=== PATIENT | male | born 2000 | race Two or more races ===

== ENCOUNTER 2025-03-25 22:55 | Emergency (ER) | payer OTHER ==
[2025-03-25 23:00] VITALS: TEMP 98.4; BMI 32.1
[2025-03-25] MEDS ORDERED: ONDANSETRON 4 MG/2 ML VIAL ONE (23:30)
[2025-03-25] MEDS ORDERED: ACETAMINOPHEN INJECTION 100 ML ONE (23:30)
[2025-03-25] MEDS ORDERED: MAG HYDROX/AL HYDROX/SIMETH 30 ML UNIT-DOSE CUP ONE (23:30)
[2025-03-25] MEDS ORDERED: FAMOTIDINE 10 MG/ML VIAL IVPB ONE (23:31)
[2025-03-25] MEDS: ACETAMINOPHEN 1000 MG/100 ML BAG IVPB ONE (23:51)
[2025-03-25] MEDS: ONDANSETRON 4 MG/2 ML VIAL IVPUSH ONE (23:51)
[2025-03-25] MEDS: FAMOTIDINE 20 MG/50 ML IVPB 20 MG/50 ML MG IVPB ONE (23:51)
[2025-03-25] MEDS: SODIUM CHLORIDE 1,000 ML IV STA (23:51)
[2025-03-25] MEDS: MAG HYDROX/AL HYDROX/SIMETH 30 ML UNIT-DOSE CUP PO ONE (23:51)
[2025-03-25 23:55] LABS: ABSOLUTE IMMATURE GRANULOCYTES 0.02 x10^3/uL (0.0-0.031); BASOPHILS # 0.05 x10^3/uL (0.01-0.08); EOSINOPHIL % 2.7 % (0.8-7.0); EOSINOPHILS # 0.21 x10^3/uL (0.04-0.54); HEMATOCRIT 43.5 % (40.1-51.0); HEMOGLOBIN 14.3 g/dL (13.7-17.5); MCHC 32.9 g/dl (32.3-36.5); MEAN CELL VOLUME 96.2 fl (79.0-92.2); MEAN PLT VOLUME 11.5 fl (9.4-12.4); MONOCYTE % 5.1 % (5.3-12.2); PLATELET COUNT 193 x10^3/uL (163-337); RDW 12.6 % (11.9-15.3)
[2025-03-25 23:56] LABS: URINE APPEARANCE CLEAR; URINE BILIRUBIN NEGATIVE (NEGATIVE); URINE COLOR YELLOW; URINE GLUCOSE (UA) NEGATIVE (NEGATIVE); URINE KETONE NEGATIVE (NEGATIVE); URINE LEUK ESTERASE NEGATIVE (NEGATIVE); URINE NITRITE NEGATIVE (NEGATIVE); URINE PROTEIN NEGATIVE (NEGATIVE); URINE UROBILINOGEN 0.2 mg/dL (0.2-1.0)
[2025-03-26 00:14] LABS: POTASSIUM 4.2 mmol/L (3.5-5.1)
[2025-03-26 00:16] LABS: CALCIUM 9.4 mg/dL (8.5-10.1)
[2025-03-26 00:17] LABS: BLOOD UREA NITROGEN 18.6 mg/dL (7-18)
[2025-03-26 00:21] LABS: BILIRUBIN,TOTAL 0.4 mg/dL (0.2-1); TOT PROT 7.1 g/dl (6.4-8.2)
[2025-03-26] MEDS: LACTATED RINGERS SOLUTION 1000 ML INFUS.BAG IV ONE (01:30)
[2025-03-26 02:27] VITALS: BP 122/82; PULSE 78; RESP 16
== END 2025-03-26 02:27 | disposition home or self-care (01) ==
LOC: JER 22:55
PROC: 3E033GC Introduction of Other Therapeutic Substance into Peripheral Vein, Percutaneous Approach (ICD-10-PCS; principal; 2025-03-25)
PROC: 3E033NZ Introduction of Analgesics, Hypnotics, Sedatives into Peripheral Vein, Percutaneous Approach (ICD-10-PCS; 2025-03-25)
PROC: 3E033GC Introduction of Other Therapeutic Substance into Peripheral Vein, Percutaneous Approach (ICD-10-PCS; 2025-03-25)
DX: R10.11 Right upper quadrant pain (principal); R10.13 Epigastric pain; R11.0 Nausea; R14.0 Abdominal distension (gaseous)
CPT/HCPCS: 36415; 80053; 81003; 83605; 83690; 85025; 87086; 99285-25